=== PATIENT | female | born 1980 | race Two or more races ===

== ENCOUNTER 2016-07-17 19:31 | Emergency (ER) | payer MEDICAID ==
[~2016-07-17] VITALS: Ht 154.9 cm; Wt 65.8 kg
[2016-07-17 20:35] LABS: Urine Bilirubin Negative (Negative); Urine Color Yellow (Yellow); Urine Glucose Normal (Normal); Urine Ketone Negative (Negative); Urine Nitrite Negative (Negative); Urine RBC 2 /hpf (0 - 4); Urine Squamous Epithelial Cell FEW /hpf (<5); Urine Urobilinogen Normal (Negative)
[2016-07-17 20:36] LABS: Basophils # (auto) 0 uL; Basophils % (auto) 0.6 % (0.0-2.0); Eosinophils # (auto) 0.1 uL; Eosinophils % (auto) 2.4 % (0.0-7.0); Hematocrit 34.7 % (36.0-46.0); Hemoglobin 11.6 g/dL (12.2-16.2); Lymphocytes # (auto) 1.6 uL; Lymphocytes % (auto) 25.2 % (10.0-50.0); Mean Corpuscular Hemoglobin 30.8 pg (28.0-32.0); Mean Corpuscular Hgb Conc. 33.6 g/dL (32.0-36.0); Mean Corpuscular Volume 91.7 fL (80.0-100.0); Mean Platelet Volume 8.2 fL (7.4-10.4); Monocytes # (auto) 0.6 uL; Monocytes % (auto) 9.5 % (0.0-12.0); Neutrophils # (auto) 3.9 uL; Neutrophils % (auto) 62.3 % (37.0-80.0); Platelet Count (auto) 231 10^3/uL (140-450); Red Cell Distribution Width 11.7 % (11.6-16.0); White Blood Cell 6.2 10^3/uL (4.4-10.8)
[2016-07-17 20:38] LABS: Albumin 3.2 g/dL (3.4-5.0); BUN/Creatinine Ratio 35.6; Calcium 8.2 mg/dL (8.5-10.1); Potassium 3.7 mmol/L (3.5-5.1)
[2016-07-17 20:40] LABS: Bilirubin, Total 0.2 mg/dL (0.2-1.0)
[2016-07-17 20:41] LABS: INR 0.93 (0.9-1.15); Partial Thromboplastin Time 26.4 sec (22.64-33.71); Prothrombin Time 9.6 sec (9.37-12.3)
[2016-07-17 20:46] LABS: Urine Blood 1+ /uL (Negative)
[2016-07-17 21:35] VITALS: BP 114/75
[2016-07-17] MEDS ORDERED: cefTRIAXone SOD 1,000 MG VL IM ONE (22:30)
== END 2016-07-17 22:54 | disposition home or self-care (01) ==
LOC: ER 19:33
DX: O20.0 Threatened abortion (principal); O23.41 Unspecified infection of urinary tract in pregnancy, first trimester; O46.8X1 Other antepartum hemorrhage, first trimester; O26.891 Other specified pregnancy related conditions, first trimester; R21 Rash and other nonspecific skin eruption; Z3A.10 10 weeks gestation of pregnancy
CPT/HCPCS: 36415; 76801; 80053; 81001; 84702; 85025; 85610; 85730; 96372; 99285; J0696

== ENCOUNTER 2016-07-27 13:18 | Emergency (ER) | payer MEDICAID ==
[~2016-07-27] VITALS: Ht 154.9 cm; Wt 68.0 kg
[2016-07-27 22:19] VITALS: BP 93/63
== END 2016-07-27 23:00 | disposition home or self-care (01) ==
LOC: ER 13:32
DX: O20.8 Other hemorrhage in early pregnancy (principal); Z3A.11 11 weeks gestation of pregnancy
CPT/HCPCS: 36415; 76801; 84702

== ENCOUNTER 2016-11-30 12:55 | Observation (INO) | payer MEDICAID | END 2016-11-30 14:35 | disposition home or self-care (01) | DRG 566 | LOC: LDRP 12:55 | PROVIDERS: ADMIT Specialist; ATTEND Specialist | DX: O42.90 Premature rupture of membranes, unspecified as to length of time between rupture and onset of labor, unspecified weeks of gestation (principal); Z3A.00 Weeks of gestation of pregnancy not specified | CPT/HCPCS: 59025; 76815; 81002; G0378 ==